=== PATIENT | male | born 1990 | race Hispanic/Latino ===

== ENCOUNTER 2018-04-03 08:36 | Emergency (ER) | payer SELFPAY | END 2018-04-03 10:45 | disposition home or self-care (01) | LOC: SCSER 08:36 | DX: H61.22 Impacted cerumen, left ear (principal) | CPT/HCPCS: 99282 ==

== ENCOUNTER 2020-09-01 09:17 | Emergency (ER) | payer SELFPAY ==
[2020-09-01 12:46] LABS: SARS-CoV-2 PCR by NAA Not Detected (NotDetected)
== END 2020-09-01 09:48 | disposition home or self-care (01) ==
LOC: ERS 09:17
DX: Z20.822 Contact with and (suspected) exposure to COVID-19 (principal)
CPT/HCPCS: 87635; 99283; U0003; U0005

== ENCOUNTER 2020-09-05 09:19 | Emergency (ER) | payer SELFPAY ==
[2020-09-05 14:30] LABS: SARS-CoV-2 PCR by NAA Not Detected (NotDetected)
== END 2020-09-05 09:55 | disposition home or self-care (01) ==
LOC: ERS 09:19
DX: Z20.822 Contact with and (suspected) exposure to COVID-19 (principal); F17.210 Nicotine dependence, cigarettes, uncomplicated
CPT/HCPCS: 87635; 99283; U0003; U0005

== ENCOUNTER 2021-05-22 20:09 | Emergency (ER) | payer OTHER | END 2021-05-22 20:49 | disposition left against medical advice (07) | LOC: ERS 20:09 | DX: Z53.21 Procedure and treatment not carried out due to patient leaving prior to being seen by health care provider (principal) ==